=== PATIENT | male | born 1970 | race Caucasian/White ===

== ENCOUNTER 2017-01-08 07:43 | Emergency (ER) | payer OTHER ==
--- NOTE | ~2017-01-08 | US85 ---
[facility] A Service of [facility] & [facility] RADIOLOGY TEXT RESULTS PATIENT: RHEA MONTERO LOCATION: SED : 74 UNIT #: [id number] AGE: [address]: Chrissy Benson MD SEX: M ORDER DR: [id number] [place] [id number] E MR#: [id number] Acc #: [id number] NAME: RHEA MONTERO. : 1970 SEX: M STUDY DATE/TIME: 01/08/2017 8:00 UNIT: SED ROOM: STUDY DESCRIPTION: LE Veins Unilat or Ltd Stdy Attending Physician: Chrissy Benson M.D. Ordering Physician: Chrissy Benson M.D. Primary Care Physician: Yolanda CourtneyPJoseRLaw MEDICAL IMAGING REPORT This report is preliminary unless electronic signature is present. EXAM Left lower extremity venous duplex, 01/08/2017 HISTORY Left lower extremity pain for 7 days. Injured left lower extremity while playing basketball 1 week ago. Evaluate for deep vein thrombosis. TECHNIQUE Venous ultrasound examination of the left lower extremity was performed using grayscale, spectral Doppler and color flow Doppler imaging. FINDINGS The examination is negative. There is no evidence of left lower extremity deep venous thrombus from the groin to the lower calf. Visualized greater saphenous vein is also patent. IMPRESSION Negative examination. No evidence of left lower extremity deep venous thrombosis. Dictated by... Angel Fernandez M.D. THIS IS AN ELECTRONICALLY VERIFIED REPORT Angel Fernandez M.D. at 01/09/2017 8:29 AM KRISTIE/lorenza TD: 01/08/2017 09:26 JOB #: [id number] MEDICAL IMAGING REPORT Page 1 of 1
--- NOTE | ~2017-01-08 | CR169 ---
[facility]. [facility] A Service of [facility] & [facility] RADIOLOGY TEXT RESULTS PATIENT: RHEA MONTERO LOCATION: SED : 74 UNIT #: [id number] AGE: [address]: Chrissy Benson MD SEX: M ORDER DR: [id number] [place] [id number] E MR#: [id number] Acc #: [id number] NAME: RHEA MONTERO. : 1970 SEX: M STUDY DATE/TIME: 01/08/2017 8:34 UNIT: SED ROOM: STUDY DESCRIPTION: CR Knee 2 Views Lt Attending Physician: Chrissy Benson M.D. Ordering Physician: Chrissy Benson M.D. Primary Care Physician: Yolanda CourtneyPJoseRLaw MEDICAL IMAGING REPORT This report is preliminary unless electronic signature is present. EXAM Left knee 2 views AP and lateral, 01/08/2017 HISTORY Calf pain since basketball injury one week ago. FINDINGS AP and lateral projection of the knee shows smooth articular anatomy without indication of fracture or dislocation at the major weight-bearing surface of the knee. There is no indication of radiopaque foreign body about the knee surface or joint effusion. IMPRESSION Normal knee. Dictated by... Jim Guevara M.D. THIS IS AN ELECTRONICALLY VERIFIED REPORT Jim Guevara M.D. at 01/08/2017 9:46 AM TORI/lorenza TD: 01/08/2017 09:36 JOB #: [id number] MEDICAL IMAGING REPORT Page 1 of 1
[~2017-01-08 07:43] MED LIST: ALBUTEROL17 GM INH; BENTYL20 MG PO; BENZONATATE PO; CIPRO PO; FLEXERIL PO; FLONASE 0.05% N16 G1; GUAIFENESIN200 M1 PO; IBUPROFEN800 MG PO; LORTAB 7.5-5001 TAB PO; NO MEDICATIONS; PEPCID PO; PHENERGAN25 MG PO; PREVACID PO; TYLENOL #3 PO; ZANAFLEX4 M1 PO; ZITHROMAX PO; ZITHROMAX1 G/PKT PO
== END 2017-01-08 09:23 | disposition home or self-care (01) ==
LOC: SED 07:43
DX: S86.112A Strain of other muscle(s) and tendon(s) of posterior muscle group at lower leg level, left leg, initial encounter (principal); F17.200 Nicotine dependence, unspecified, uncomplicated; Z88.8 Allergy status to other drugs, medicaments and biological substances; X50.1XXA Overexertion from prolonged static or awkward postures, initial encounter; Y93.67 Activity, basketball; Y92.310 Basketball court as the place of occurrence of the external cause
CPT/HCPCS: 73560; 93971; 99284